=== PATIENT | male | born 1955 | race Caucasian/White ===

== ENCOUNTER 2018-04-10 17:24 | Emergency (ER) | payer OTHER ==
[2018-04-10 17:31] VITALS: BP 140/84; PULSE 64; TEMP 97.6; BMI 29.7
--- NOTE | 2018-04-10 18:16 | PDOC ---
History of Present Illness - General Chief Complaint: Laceration Stated Complaint: LACERATION TO HEAD Time Seen by Provider: 04/10/18 17:57 History Source: Patient Exam Limitations: No Limitations - History of Present Illness Initial Comments: 04/10/18 18:11 HISTORY OF PRESENT ILLNESS: This is a 62-year-old male past medical history of hyperlipidemia presents emergency department for evaluation of scalp laceration sustained today on a fire sprinkler. Patient states she was putting Hi Hat decorations already into his attic when he didn't realize sprinkler was where was striking the top of his head on the sprinkler. Patient denies any loss of consciousness and has full recollection of events immediately prior to during and after the event. Patient noted that he had a flap of skin hanging which she folded back over in place. Patient denies any blood thinners. TD- UTD. No recent travel or sick contacts. PAST MEDICAL HISTORY: HLD SURGICAL HISTORY: Denies ALLERGIES: No known drug allergies REVIEW OF SYSTEMS General/Constitutional: Denies fever or chills. Denies weakness, weight change. HEENT: Denies change in vision. Denies ear pain or discharge. Denies sore throat. Cardiovascular: Denies chest pain or shortness of breath. Respiratory: Denies cough, wheezing, or hemoptysis. Gastrointestinal: Denies nausea, vomiting, diarrhea or constipation. Denies rectal bleeding. Genitourinary: Denies dysuria, frequency, or change in urination. Musculoskeletal: Denies joint or muscle swelling or pain. Denies neck or back pain. Skin and breasts: Scalp laceration Neurologic: Denies headache, vertigo, loss of consciousness, or loss of sensation. Psychiatric: Denies depression or anxiety. Endocrine: Denies increased thirst. Denies abnormal weight change. Hematologic/Lymphatic: Denies anemia, easy bleeding, or history of blood clots. Allergic/Immunologic: Denies hives or skin allergy. Denies latex allergy. PHYSICAL EXAM General Appearance: Well-appearing, appropriately dressed. No apparent distress , no intoxication. HEENT: EOMI, PERRLA, normal ENT inspection, normal voice, TMs normal, pharynx normal. No conjunctival pallor. No photophobia, scleral icterus. Neck: Supple. Trachea midline. No tenderness, rigidity, carotid bruit, stridor , lymphadenopathy, or thyromegaly. Respiratory/Chest: Lungs CTAB. No shortness of breath, chest tenderness, respiratory distress, accessory muscle use. No crackles, rales, rhonchi, stridor , wheezing, dullness Cardiovascular: RRR. S1, S2. No JVD, murmur, bradycardia, tachycardia. Integumentary: 4cm flap laceration present to left parietal area. Galea intact. Bleeding controlled at present. 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 Fully oriented, alert. Appropriate mood/affect. Motor strength 5/5. No appreciable EOM palsy, facial droop or sensory deficit. Past History - Past Medical History Allergies/Adverse Reactions: Allergies Allergy/AdvReac Type Severity Reaction Status Date / Time No Known Allergies Allergy Verified 04/10/18 17:27 Home Medications: Ambulatory Orders Rosuvastatin [Crestor -] 40 mg PO DAILY 04/10/18 COPD: No Hypercholesterolemia: Yes - Immunization History Immunization Up to Date: Yes - Suicide/Smoking/Psychosocial Hx Smoking History: Never smoked Hx Alcohol Use: No Drug/Substance Use Hx: No *Physical Exam - Vital Signs Last Vital Signs Temp Pulse Resp BP Pulse Ox 97.6 F 64 18 140/84 96 04/10/18 17:27 04/10/18 17:27 04/10/18 17:27 04/10/18 17:27 04/10/18 17:27 Moderate Sedation - Procedure Monitoring Vital Signs: Procedure Monitoring Vital Signs Temperature 97.6 F 04/10/18 17:27 Pulse Rate 64 04/10/18 17:27 Respiratory Rate 18 04/10/18 17:27 Blood Pressure 140/84 04/10/18 17:27 O2 Sat by Pulse Oximetry (%) 96 04/10/18 17:27 Procedures - Consent Consent obtained: Verbal, From Patient - Laceration/Wound Repair Left Lateral Parietal Wound Length: 2.6 to 5.0 cm Wound Explored: clean Wound's Depth, Shape: superficial, flap Irrigated w/ Saline: Yes Betadine Prep: Yes Anesthesia: 1% Lidocaine Amount of Anesthetic (ccs): 4 Wound Debrided: minimal Wound Repaired With: Sheeba Number of Sutures: 5 Layer Closure: No Sterile Dressing Applied: Yes Splint Applied: No Sling Applied: No Progress: 04/10/18 18:37 pt tolerated well Medical Decision Making - Medical Decision Making 04/10/18 18:15 A/P: 62-year-old male with scalp laceration 4 cm scalp flap laceration present to the left parietal region Galea intact Bleeding well-controlled Cranial nerves II through XII grossly intact Strength 5/5 in all extremities Laceration repair-see procedure note for details Discharge home *DC/Admit/Observation/Transfer Diagnosis at time of Disposition: Superficial laceration of scalp Qualifiers: Encounter type: initial encounter Qualified Code(s): S01.01XA - Laceration without foreign body of scalp, initial encounter - Discharge Dispostion Disposition: HOME Condition at time of disposition: Stable Decision to Admit order: No - Referrals Referrals: Thai Wisdom [Primary Care Provider] - - Patient Instructions Additional Instructions: Rest, no exercise or gym until sheeba are removed May use ice packs tonight as needed for swelling and pain Put a towel over pillow/old pillowcase to avoid damage from bacitracin and bleeding to linens until sheeba removed Use antibiotic cream/ointment once in the morning once at night until sheeba are removed May use Tylenol or Motrin for pain relief Return to emergency department for worsening pain, swelling, bleeding, or evidence of serious head injury Staple removal in 5-7 days - Post Discharge Activity
== END 2018-04-10 18:41 | disposition home or self-care (01) ==
LOC: JERFT 17:24
PROC: 0HQ0XZZ Repair Scalp Skin, External Approach (ICD-10-PCS; principal; 2018-04-10)
DX: S01.01XA Laceration without foreign body of scalp, initial encounter (principal); W22.8XXA Striking against or struck by other objects, initial encounter; Y93.89 Activity, other specified; Y92.89 Other specified places as the place of occurrence of the external cause; Y99.8 Other external cause status
CPT/HCPCS: 99281-25